=== PATIENT | male | born 1985 | race Caucasian/White ===

== ENCOUNTER 2019-06-09 13:50 | Inpatient (IN) | payer OTHER ==
[~2019-06-09] VITALS: Ht 172.7 cm; Wt 56.8 kg
[2019-06-09 14:06] VITALS: Ht 172.7 cm; Wt 56.8 kg
[2019-06-09 15:24] LABS: BASOPHIL % 1.6 % (0-2); PLATELET COUNT 252 x10^3mcL (130-400); RED CELL DISTRIBUTION WIDTH 13.7 % (11.5-14.5)
[2019-06-09 15:33] LABS: CALCIUM 8.5 mg/dL (8.5-10.1); CARBON DIOXIDE 26.8 mmol/L (21-32); CHLORIDE SERUM 103 mmol/L (98-107); CREATININE SERUM 0.9 mg/dL (0.7-1.3); GFR1 > 60 mL/min; GLUCOSE SERUM 83 mg/dL (74-106); POTASSIUM SERUM 3.7 mmol/L (3.5-5.1); SODIUM SERUM 136 mmol/L (136-145)
[2019-06-09 15:37] LABS: ALBUMIN 3.7 g/dL (3.4-5.0); ALKALINE PHOSPHATASE 49 U/L (46-116); ALT/SGPT 18 U/L (16-63); AST/SGOT 12 U/L (15-37); BILIRUBIN TOTAL 0.3 mg/dL (0.20-1.00); TOTAL PROTEIN, SERUM 7.3 g/dL (6.4-8.2)
[2019-06-09 15:59] LABS: OSMOLALITY SERUM 295 mOsm/kg (278-298)
[2019-06-09 16:05] LABS: microscopic required? NO
[2019-06-09 16:37] LABS: UA SPECIFIC GRAVITY <=1.005 (1.005-1.035); urine erythrocyte NEGATIVE (NEGATIVE)
[2019-06-09 16:46] LABS: AMPHETAMINE QUAL UR NONE DETECTED (See below)
[2019-06-09 20:26] LABS: MAGNESIUM 1.9 mg/dL (1.8-2.4); PHOSPHOROUS 2.7 mg/dL (2.5-4.9)
[2019-06-09] MEDS ORDERED: NEU300 PO (21:29)
[2019-06-09] MEDS ORDERED: VRAYLAR1.5 MG PO (21:29)
[2019-06-09] MEDS ORDERED: LAMICTAL200 MG PO (21:29)
[2019-06-09] MEDS ORDERED: ALBUTEROL1.25 MG/3 IH (21:31)
[2019-06-09] MEDS ORDERED: PRIMATENE MIS11.7 GM IH (21:31)
[2019-06-09] MEDS ORDERED: ZITHROMAX Z-PA250 MG PO (21:32)
[2019-06-09] MEDS ORDERED: PHEDML PO (21:33)
[2019-06-10 07:34] LABS: BASOPHIL % 0.4 % (0-2); PLATELET COUNT 261 x10^3mcL (130-400); RED CELL DISTRIBUTION WIDTH 13.3 % (11.5-14.5)
[2019-06-10 10:07] VITALS: BP 129/79
[2019-06-10 11:42] LABS: CALCIUM 8.6 mg/dL (8.5-10.1); CARBON DIOXIDE 24.5 mmol/L (21-32); CHLORIDE SERUM 105 mmol/L (98-107); CREATININE SERUM 0.8 mg/dL (0.7-1.3); GFR1 > 60 mL/min; GLUCOSE SERUM 84 mg/dL (74-106); POTASSIUM SERUM 3.5 mmol/L (3.5-5.1); SODIUM SERUM 137 mmol/L (136-145)
[2019-06-10 11:48] LABS: ALBUMIN 3.6 g/dL (3.4-5.0); ALKALINE PHOSPHATASE 52 U/L (46-116); ALT/SGPT 25 U/L (16-63); AST/SGOT 55 U/L (15-37); BILIRUBIN TOTAL 0.9 mg/dL (0.20-1.00); TOTAL PROTEIN, SERUM 6.9 g/dL (6.4-8.2)
[2019-06-10 12:11] LABS: MAGNESIUM 1.7 mg/dL (1.8-2.4); PHOSPHOROUS 3.2 mg/dL (2.5-4.9)
[2019-06-10 12:13] LABS: ALBUMIN 3.8 g/dL (3.4-5.0); ALKALINE PHOSPHATASE 57 U/L (46-116); ALT/SGPT 22 U/L (16-63); AST/SGOT 70 U/L (15-37); BILIRUBIN TOTAL 0.58 mg/dL (0.20-1.00); CALCIUM 8.8 mg/dL (8.5-10.1); CARBON DIOXIDE 23.6 mmol/L (21-32); CHLORIDE SERUM 105 mmol/L (98-107); CREATININE SERUM 0.9 mg/dL (0.7-1.3); GFR1 > 60 mL/min; GLUCOSE SERUM 76 mg/dL (74-106); POTASSIUM SERUM 3.8 mmol/L (3.5-5.1); SODIUM SERUM 142 mmol/L (136-145); TOTAL PROTEIN, SERUM 7.2 g/dL (6.4-8.2)
[2019-06-10] MEDS ORDERED: ADV100/50 INH (15:09)
[2019-06-10] MEDS ORDERED: MEDROL DOSEPAK4 MG PO (15:09)
[2019-06-10] MEDS ORDERED: PROAIR HFA8.5 GM IH (15:09)
[2019-06-10 15:37] VITALS: BP 129/79
== END 2019-06-10 16:10 | disposition home or self-care (01) | DRG 917 ==
LOC: ED 13:50 → IC 19:19 → DU 06-10 08:50
PROVIDERS: Student in an Organized Health Care Education/Training Program; ADMIT Family Medicine
DX: T42.6X1A Poisoning by other antiepileptic and sedative-hypnotic drugs, accidental (unintentional), initial encounter (principal); G92 Toxic encephalopathy; J45.901 Unspecified asthma with (acute) exacerbation; F31.9 Bipolar disorder, unspecified; F12.90 Cannabis use, unspecified, uncomplicated; Y92.89 Other specified places as the place of occurrence of the external cause; Z79.899 Other long term (current) drug therapy
CPT/HCPCS: 82962; 97116-GP; G0378; G0480; J2060; J3411; J3490; J7030; J7042; Q0092